=== PATIENT | female | born 1960 | race Caucasian/White ===

== ENCOUNTER 2018-09-20 17:09 | Emergency (ER) | payer OTHER ==
[2018-09-20 17:45] VITALS: BP 161/72; PULSE 64; TEMP 98; BMI 34.7
[2018-09-20] MEDS ORDERED: IBUPROFEN 600 MG TABLET (FP) PO ONE ×2 (18:13→18:18)
--- NOTE | 2018-09-20 18:19 | PDOC ---
History of Present Illness - General Chief Complaint: Injury Stated Complaint: FALL/RT LEG INJURY Time Seen by Provider: 09/20/18 17:45 History Source: Patient, Family - History of Present Illness Initial Comments: Patient is a 58-year-old female who is accompanied by her daughter who is translating. Patient states she would like to use her family member as a diamond mounter. The patient states that she slipped on her bathroom floor on Monday night and slid down onto her right hip and she now has lower back pain and right hip pain. She denies hitting her head and denies loss of consciousness. She denies neck pain. The patient denies inability to bear weight ambulate. She describes the pain as a throb and rates it a 5 out of 10 and has been attempting Tylenol without success. Denies any relieving factors however states ambulating exacerbates her discomfort. 09/20/18 18:14 Past History - Travel Traveled outside of the country in the last 30 days: No - Past Medical History Allergies/Adverse Reactions: Allergies Allergy/AdvReac Type Severity Reaction Status Date / Time No Known Allergies Allergy Verified 09/20/18 17:43 Home Medications: Ambulatory Orders Acetaminophen [Tylenol] 650 mg PO QID PRN 09/20/18 - Suicide/Smoking/Psychosocial Hx Smoking History: Never smoked Review of Systems - Review of Systems Able to Perform ROS?: Yes *Physical Exam - Vital Signs Last Vital Signs Temp Pulse Resp BP Pulse Ox 98 F 64 20 161/72 98 09/20/18 17:44 09/20/18 17:44 09/20/18 17:44 09/20/18 17:44 09/20/18 17:44 - Physical Exam Comments: Constitutional: VS stated, pt appears in no apparent distress; sitting in chair. Skin: Pt has a 15 cm abrasion to the right posterior LE. No signs of secondary infection. Head: Normocephalic; atraumatic Eyes: conjunctiva pink without injection or discharge. Throat: Oropharynx with pink and moist mucosa. Lungs: Bilateral breath sounds clear upon auscultation. Heart: Regular rate and rhythm, Abdomen: Soft and non-tender. Musculoskeletal: Full ROM of TMJ without pain, tenderness, or crepitus. Normal curves of cervical, thoracic, and lumbar spine. Full ROM of cervical and lumbar spine. Proximal joints normal; neck, arms, hips, knees, and ankles with full range of active and passive motion. Muscles appear symmetric. Sensation intact medially and laterally. No saddle anesthesia. DTRs+2. No tenderness on palpation of spine. 5/5 strength in upper extremities and lower extremity groups. Pt has pain upon palpation to the right pelvic, can bear weight. Pain upon palpation to the lumbar spine. Neurologic: Awake, alert. Conversation fluent. Normal attention. Oriented to person, place, and time. Cranial nerves 1-12 intact. Gross sensory and motor strength intact; cerebellar function normal. Steady gait noted, deep tendon reflexes within normal range. 09/20/18 18:17 Moderate Sedation - Procedure Monitoring Vital Signs: Procedure Monitoring Vital Signs Temperature 98 F 09/20/18 17:44 Pulse Rate 64 09/20/18 17:44 Respiratory Rate 20 09/20/18 17:44 Blood Pressure 161/72 09/20/18 17:44 O2 Sat by Pulse Oximetry (%) 98 09/20/18 17:44 ED Treatment Course - RADIOLOGY Radiology Studies Ordered: Pelvis and lumbar spine xrays were reviewed by myself as negative Category Date Time Status PELVIS [RAD] Stat Radiology 09/20/18 18:12 Ordered SPINE-LUMBAR SACRAL [RAD] Stat Radiology 09/20/18 18:11 Ordered 09/20/18 18:19 09/20/18 18:57 Medical Decision Making - Medical Decision Making 09/20/18 18:19 Pt was given Ibuprofen 600 mg PO *DC/Admit/Observation/Transfer Diagnosis at time of Disposition: Musculoskeletal pain - Discharge Dispostion Disposition: HOME Condition at time of disposition: Stable Decision to Admit order: No - Referrals - Patient Instructions Printed Discharge Instructions: How to Prevent Falls Additional Instructions: Take Tylenol 650 mg every 4 hours and Ibuprofen 600 mg every 6 hours. Follow up with your PCP - Post Discharge Activity
== END 2018-09-20 19:17 | disposition home or self-care (01) ==
LOC: JERFT 17:09
DX: M54.5 Low back pain (principal); M25.551 Pain in right hip; S80.811A Abrasion, right lower leg, initial encounter; W01.0XXA Fall on same level from slipping, tripping and stumbling without subsequent striking against object, initial encounter; Y93.89 Activity, other specified; Y92.031 Bathroom in apartment as the place of occurrence of the external cause; Y99.8 Other external cause status
CPT/HCPCS: 72100-TC-FY; 72170-TC-FY; 99281-25

== ENCOUNTER 2023-02-10 15:35 | Emergency (ER) | payer MEDICARE, OTHER ==
[2023-02-10 15:50] VITALS: BP 126/70; PULSE 65; RESP 17; TEMP 98; BMI 32.5
[2023-02-10 17:17] LABS: BASO % 0.7 % (0-2.0); EOS % 2.3 % (0-4.5); HEMATOCRIT 37.7 % (32.4-45.2); HEMOGLOBIN 12.3 GM/dL (10.7-15.3); LYMPH % 38.7 % (8-40); MCH 28.3 pg (25.7-33.7); MCHC 32.7 g/dl (32.0-36.0); MEAN CELL VOLUME 86.6 fl (80-96); MEAN PLT VOLUME 8.6 fl (7.5-11.1); MONO % 7.1 % (3.8-10.2); NEUT % 51.2 % (42.8-82.8); PLATELET COUNT 276 10^3/uL (134-434); RBC 4.35 M/mm3 (3.60-5.2); RDW 13.6 % (11.6-15.6); WHITE BLOOD COUNT 7.6 K/mm3 (4.0-10.0)
[2023-02-10 17:33] LABS: POTASSIUM 4.3 mmol/L (3.5-5.1)
[2023-02-10 17:35] LABS: CALCIUM 9.6 mg/dL (8.5-10.1)
[2023-02-10 17:36] LABS: BLOOD UREA NITROGEN 11.6 mg/dL (7-18)
[2023-02-10 17:39] LABS: CREATININE 0.6 mg/dL (0.55-1.3)
[2023-02-10 17:41] LABS: BILIRUBIN,TOTAL 0.4 mg/dL (0.2-1); TOT PROT 7.7 g/dl (6.4-8.2)
== END 2023-02-10 18:29 | disposition home or self-care (01) ==
LOC: JERFT 15:35
DX: R06.02 Shortness of breath (principal); R00.1 Bradycardia, unspecified; Z20.822 Contact with and (suspected) exposure to COVID-19
CPT/HCPCS: 0241U-QW; 36415; 71045-TC-FY; 80053; 84484; 85025; 85379; 93005; 93010; 99285-25

== ENCOUNTER 2023-03-28 07:06 | Emergency (ER) | payer MEDICARE, OTHER ==
[2023-03-28 07:17] VITALS: BMI 32.3
[2023-03-28] MEDS ORDERED: ACETAMINOPHEN 1000 MG/100 ML BAG IVPB ONE (09:03)
[2023-03-28] MEDS ORDERED: ACETAMINOPHEN INJECTION 100 ML IVPB ONE (09:21)
[2023-03-28 09:27] LABS: BASO % 1.2 % (0-2.0); EOS % 4.4 % (0-4.5); HEMATOCRIT 34.4 % (32.4-45.2); HEMOGLOBIN 11.2 GM/dL (10.7-15.3); LYMPH % 30.5 % (8-40); MCH 28.4 pg (25.7-33.7); MCHC 32.4 g/dl (32.0-36.0); MEAN CELL VOLUME 87.6 fl (80-96); MEAN PLT VOLUME 8.8 fl (7.5-11.1); MONO % 7.5 % (3.8-10.2); NEUT % 56.4 % (42.8-82.8); PLATELET COUNT 301 10^3/uL (134-434); RBC 3.93 M/mm3 (3.60-5.2); RDW 13.7 % (11.6-15.6)
[2023-03-28 09:43] LABS: POTASSIUM 4.4 mmol/L (3.5-5.1)
[2023-03-28 09:45] LABS: ALBUMIN 3.3 g/dl (3.4-5.0); BLOOD UREA NITROGEN 9.5 mg/dL (7-18); CALCIUM 8.5 mg/dL (8.5-10.1)
[2023-03-28 09:48] LABS: CREATININE 0.5 mg/dL (0.55-1.3)
[2023-03-28 09:50] LABS: BILIRUBIN,TOTAL 0.2 mg/dL (0.2-1); TOT PROT 6.8 g/dl (6.4-8.2)
[2023-03-28 12:59] VITALS: TEMP 98.1
[2023-03-28 13:32] LABS: PH,URINE 8.5 (5.0-8.0); URINE APPEARANCE CLEAR; URINE BILIRUBIN NEGATIVE (NEGATIVE); URINE COLOR YELLOW; URINE GLUCOSE (UA) NEGATIVE (NEGATIVE); URINE KETONE NEGATIVE (NEGATIVE); URINE LEUK ESTERASE NEGATIVE (NEGATIVE); URINE NITRITE NEGATIVE (NEGATIVE); URINE PROTEIN NEGATIVE (NEGATIVE); URINE UROBILINOGEN 0.2 mg/dL (0.2-1.0)
[2023-03-28] MEDS ORDERED: KETOROLAC TROMETHAMINE 15 MG/ML VIAL IVPUSH ONE (14:22)
[2023-03-28] MEDS ORDERED: KETOROLAC TROMETHAMINE 15 MG/ML VIAL ONE (14:52)
[2023-03-28 15:44] VITALS: BP 116/59; PULSE 54; RESP 18
== END 2023-03-28 16:50 | disposition home or self-care (01) ==
LOC: JER 07:06
PROC: 3E033NZ Introduction of Analgesics, Hypnotics, Sedatives into Peripheral Vein, Percutaneous Approach (ICD-10-PCS; principal; 2023-03-28)
PROC: 3E0333Z Introduction of Anti-inflammatory into Peripheral Vein, Percutaneous Approach (ICD-10-PCS; 2023-03-28)
DX: R51.9 Headache, unspecified (principal); M79.641 Pain in right hand; M79.642 Pain in left hand; W19.XXXA Unspecified fall, initial encounter
CPT/HCPCS: 36415; 70450-TC; 71045-TC-FY; 72125-TC; 73090-TC-LT-FY; 73090-TC-RT-FY; 73110-TC-LT-FY; 73110-TC-RT-FY; 73130-TC-LT-FY; 73130-TC-RT-FY; 80053; 81003; 84484; 85025; 93005; 93010; 96374; 96375; 99285-25